=== PATIENT | male | born 1975 | race Caucasian/White ===

== ENCOUNTER 2016-09-16 00:02 | Observation (INO) | payer BC ==
[2016-09-16 00:21] LABS: Hemoglobin 14.5 gm/dL (13.5-18.0); Mean Cell Volume 87.2 fl (78-100); Mean Corpuscular Hemoglobin 29.4 pg (27-31); Mean Corpuscular Hgb Conc 33.7 g/dl (32-36); Mean Platelet Volume 9.1 fl (6.0-9.5); Neutrophil # 4.7 K/mm3 (1.3-6.0); Neutrophil % 49.1 % (42-75.0); Platelet Count 235 K/mm3 (150-450); Red Blood Count 4.93 M/mm3 (4.7-6.0); Red Cell Distribution Width 12.1 % (11.5-14.0); White Blood Count 9.6 K/mm3 (4.0-10.5)
[2016-09-16] MEDS ORDERED: ASPIRIN 81 MG TAB.CHEW PO ONE (00:26)
[2016-09-16] MEDS ORDERED: ASPIRIN 81 MG TAB.CHEW ONE (00:35)
[2016-09-16 00:40] LABS: ALT 33 U/L (19-67); AST 14 U/L (0-48); Albumin * 4.1 gm/dl (3.4-5.0); Alkaline Phosphatase * 68 U/L (50-170); Anion Gap 19.5 mmol/L (6.8-13.8); BUN/Creatinine Ratio 12.5 (9.0-21.6); Bilirubin, Total 0.2 mg/dL (0.0-1.1); Blood Urea Nitrogen 14 mg/dL (6-23); Ca. Corrected For Albumin 8.5 mg/dL (8.4-10.2); Calcium * 8.9 mg/dL (7.9-10.9); Carbon Dioxide 21.2 mmol/L (24-32.6); Chloride 105 mmol/L (97-106); Glucose * 94 mg/dL (70-110); Potassium 3.7 mmol/L (3.4-4.6); Sodium 142 mmol/L (132-142)
[2016-09-16 00:41] LABS: Troponin I Less than 0.017 ng/ml (0.00-0.10)
[2016-09-16 00:46] LABS: Cocaine Ur Negative (NEGATIVE); Urine Barbiturate Negative (NEGATIVE); Urine Benzodiazepines Negative (NEGATIVE); Urine Opiates Negative (NEGATIVE); Urine PCP Negative (NEGATIVE); Urine THC Negative (NEGATIVE)
--- NOTE | 2016-09-16 01:20 | ERNOTE ---
Dyspnea - Date Date of Service: 09/16/16 - General Time Seen by Provider: 09/16/16 00:03 Source: patient - Immun/Allergies/Home Medications Immunizations: IMMUNIZATION HX Immunizations Up to Date Yes History of Influenza Vaccine No Hx Pneumococcal Vaccination No Allergies/Adverse Reactions: Allergies fructose Adverse Reaction (Mild, Verified 05/04/16 07:09) KIDNEY STONES lactose Adverse Reaction (Mild, Verified 05/04/16 07:09) KIDNEY STONES Home Medications: HOME MEDICATIONS Aspirin 325 mg PO DAILY 10/07/14 [Last Taken Unknown] traMADol HCL [Ultram] 50 - 100 mg PO Q12H PRN 04/20/16 [Last Taken Unknown] - History of Present Illness Narrative: pt has chronic right upper extremity pain. He took three 50mg tramadols then drank 7 shots. He started having chest pain approx. an hour after alcohol Review of Systems - Narrative Narrative: chest pain is substernal and pressure like, no radiation. Pt has a strong family history of AR. - Review of Systems Constitutional: Present: no symptoms reported EYE: Present: no symptoms reported ENT: Present: no symptoms reported Respiratory: Present: no symptoms reported Cardiology: Present: See HPI Gastrointestinal/Abdominal: Present: no symptoms reported Genitourinary: Present: no symptoms reported Musculoskeletal: Present: no symptoms reported Skin: Present: no symptoms reported - Patient's Past Medical History Patient History - Medical: Migraines, Other Patient History - Cancer: No Hx of Cancer Patient History - Surgical Procedures: Colonoscopy - Family History Mother Family History - Medical: Migraines Family History - Cardiac/Respiratory: Hypertension, Myocardial Infarction Father Family History - Medical: , No pertinent hx Family History - Cardiac/Respiratory: CVA/Stroke - Social History Living Situations: home Smoking Status: Current every day smoker Patient requests Smoking Cessation Consult: No Initiate information on Smoking Cessation: No Alcohol Use: occasionally Drug Use: none Physical Exam - Physical Exam General Appearance: Present: wd/wn, alert, no apparent distress Ears, Nose, Throat: Present: normal ENT inspection, hearing grossly normal Neck: Present: normal inspection, nontender Respiratory: Present: no respiratory distress, normal breath sounds, no accessory muscle use, chest nontender, lungs clear Cardiovascular/Chest: Present: regular rate, rhythm, no murmur, normal peripheral pulses ED Progress - Results and Orders Patient's Lab Results:: I have reviewed the patient's lab results. - Vital Signs Patient's Vital Signs:: I have reviewed the patient's vital signs. Vital Signs: Vital Signs 09/16/16 09/16/16 09/16/16 00:04 00:26 00:39 Temperature 36.0 C L Pulse Rate 93 86 86 Respiratory 26 H 11 L Rate Blood Pressure 148/101 116/72 O2 Sat by Pulse 98 97 Oximetry - EKG EKG read: Interp. by me - NSR no ST changes - X-Ray X-Ray #1 X-Ray: chest - nl - Progress/Reassessment Chief Complaint: Dyspnea Departure Clinical Impression: Chest pain Qualifiers: Chest pain type: unspecified Qualified Code(s): R07.9 - Chest pain, unspecified - Departure Disposition: [facility] Condition: Good
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
[2016-09-16 10:08] VITALS: BP 136/76
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
== END 2016-09-16 11:30 | disposition home or self-care (01) ==
LOC: ER 00:02 → MS 01:44
PROVIDERS: ADMIT Nurse Practitioner; ATTEND Internal Medicine
DX: R07.9 Chest pain, unspecified (principal); F10.129 Alcohol abuse with intoxication, unspecified; Z87.891 Personal history of nicotine dependence
CPT/HCPCS: 36415; 71010; 80053; 80320; 84484; 85025; 93005; 99283; G0378; G0479

== ENCOUNTER 2016-10-26 11:21 | Day surgery (SDC) | payer OTHER, BC ==
[~2016-10-26 11:21] MED LIST: HYDROmorphone HCL 2 MG/ML VIAL IV PRN; RINGERS SOLUTION,LACTATED 1,000 ML IV PRN; ceFAZolin SODIUM 1 GM VIAL IV PRN; oxyCODONE HCL/ACETAMINOPHEN 1 TAB TABLET PO PRN
--- OUTSIDE RECORDS SUMMARY | 2016-10-26 11:24 | XMS REPORT | Continuity of Care Document ---
:1975 Author Organization [facility] ([facility]) Address [place] [address] Phone [phone] Care Team Providers Name Role Phone Viktor Valencia Primary Care Provider [phone] Source Comments This disclosure is being made pursuant to the Care Everywhere program, applicable federal and state laws, and may not contain all informaitonavailable regarding this patient.[facility] ([facility]) Active Allergies and Adverse Reactions Allergen Noted Date Severity Reactions Comments Fructose 09/27/2009 OTHER Kidney stones Lactose 09/27/2009 OTHER gas Current Medications Prescription Sig. Disp. Refills Start Date End Date Status ASPIRIN, BULK, 325 mg daily. 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 Pulse 76 09/27/2009 11:13 AM DURALUMIN MECHANIC Temperature 36.1 C (97 F) 09/27/2009 11:12 AM DURALUMIN MECHANIC Respiratory Rate - - Height 1.78 m (5' 10.08") 09/27/2009 11:12 AM DURALUMIN MECHANIC Weight 76.7 kg (169 lb 1.5 oz) 09/27/2009 11:12 AM DURALUMIN MECHANIC Body Mass Index 24.21 09/27/2009 11:12 AM DURALUMIN MECHANIC Oxygen Saturation - - Plan of Care Health Maintenance Due Date Last Done Comments Hepatitis B Vaccine (1 of 3 - Primary Series) 1975 Tdap Vaccine 1986 Lipid Disorder Screening 1993 MMR Vaccine 1993 Td Vaccine 1993 Influenza Vaccine: Seasonal (#1) 04/02/2016 Results from Last 3 Months Not on file
[2016-10-26] MEDS ORDERED: RINGERS SOLUTION,LACTATED 1,000 ML IV ONE ×3 (11:53→16:20)
[2016-10-26 18:18] VITALS: BP 120/77
== END 2016-10-26 11:22 | disposition home or self-care (01) ==
LOC: AMB 11:21
PROVIDERS: ATTEND Orthopaedic Surgery
PROC: 0RGN04Z Fusion of Right Wrist Joint with Internal Fixation Device, Open Approach (ICD-10-PCS; 2016-10-26)
PROC: 0RGN07Z Fusion of Right Wrist Joint with Autologous Tissue Substitute, Open Approach (ICD-10-PCS; principal; 2016-10-26 15:00)
DX: M19.031 Primary osteoarthritis, right wrist (principal); F17.200 Nicotine dependence, unspecified, uncomplicated; Z68.22 Body mass index [BMI] 22.0-22.9, adult

== ENCOUNTER 2017-04-28 18:30 | Emergency (ER) | payer BC, OTHER ==
[2017-04-28 18:48] LABS: Mean Platelet Volume 9.5 fl (6.0-9.5); Neutrophil # 5.2 K/mm3 (1.3-6.0); Neutrophil % 53.8 % (42-75.0); Platelet Count 260 K/mm3 (150-450); Red Blood Count 5.34 M/mm3 (4.7-6.0); Red Cell Distribution Width 12.4 % (11.5-14.0); White Blood Count 9.7 K/mm3 (4.0-10.5)
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
[2017-04-28] MEDS ORDERED: DIPHTH,PERTUSS(ACELL),TET VAC 0.5 ML VIAL IM ONE ×2 (18:55→18:56)
[2017-04-28] MEDS ORDERED: NORMAL SALINE 1,000 ML IV ONE (18:55)
[2017-04-28] MEDS ORDERED: RINGER'S SOLUTION,LACTATED 1,000 ML IV ONE ×2 (18:55→19:04)
[2017-04-28] MEDS ORDERED: MORPHINE SULFATE 4 MG/ML SYRG ONE ×2 (18:59→19:29)
[2017-04-28] MEDS ORDERED: MORPHINE SULFATE 4 MG/ML SYRG IV ONE (19:01)
[2017-04-28 19:03] LABS: INR 0.96 INR (0.90-1.10)
[2017-04-28] MEDS ORDERED: ONDANSETRON HCL/PF 2 MG/ML VIAL IV ONE (19:03)
[2017-04-28 19:05] LABS: ALT 37 U/L (19-67); AST 35 U/L (0-48); Albumin * 4.5 gm/dl (3.4-5.0); Alkaline Phosphatase * 89 U/L (50-170); Anion Gap 18.4 mmol/L (6.8-13.8); Bilirubin, Total 0.3 mg/dL (0.0-1.1); Blood Urea Nitrogen 13 mg/dL (6-23); Calcium * 8.7 mg/dL (7.9-10.9); Carbon Dioxide 22.2 mmol/L (24-32.6); Chloride 104 mmol/L (97-106); Glucose * 87 mg/dL (70-110); Potassium 3.6 mmol/L (3.4-4.6); Sodium 141 mmol/L (132-142); Total Protein 7.9 gm/dL (6.2-8.2); Troponin I Less than 0.017 ng/ml (0.00-0.10)
[2017-04-28] MEDS ORDERED: ONDANSETRON HCL/PF 2 MG/ML VIAL ONE (19:10)
[2017-04-28 19:17] LABS: Urine Appearance Clear; Urine Bilirubin Negative (NEGATIVE); Urine Blood 25 /ul (NEGATIVE); Urine Color Yellow; Urine Ketone Negative (NEGATIVE); Urine Protein Negative (NEGATIVE)
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
[2017-04-28 19:18] LABS: Urine Bacteria None Seen; Urine Nitrite Negative (NEGATIVE); Urine RBC 0-5 /hpf (0-5); Urine Urobilinogen Normal (NORMAL); Urine WBC None Seen /hpf (0-5)
[2017-04-28 19:23] LABS: Cocaine Ur Negative (NEGATIVE); Urine Barbiturate Negative (NEGATIVE); Urine Benzodiazepines Negative (NEGATIVE); Urine Opiates Negative (NEGATIVE); Urine PCP Negative (NEGATIVE); Urine THC Negative (NEGATIVE)
[2017-04-28 20:02] VITALS: BP 141/70
== END 2017-04-28 19:44 | disposition short-term general hospital (02) ==
LOC: ER 18:30
PROC: 0T9B70Z Drainage of Bladder with Drainage Device, Via Natural or Artificial Opening (ICD-10-PCS; principal; 2017-04-28)
DX: S22.049A Unspecified fracture of fourth thoracic vertebra, initial encounter for closed fracture (principal); S22.31XA Fracture of one rib, right side, initial encounter for closed fracture; S00.81XA Abrasion of other part of head, initial encounter; V28.4XXA Motorcycle driver injured in noncollision transport accident in traffic accident, initial encounter; Y92.411 Interstate highway as the place of occurrence of the external cause; Z23 Encounter for immunization
CPT/HCPCS: 36415; 51702; 70450; 71260; 72125; 80053; 80307; 81001; 84484; 85025; 85610; 85730; 86850; 86900; 90471; 90715; 96374; 96375; 99285; G0481; J2405